=== PATIENT | male | born 1985 | race Caucasian/White ===

== ENCOUNTER 2023-12-25 19:44 | Emergency (ER) | payer OTHER, SELFPAY ==
[2023-12-25 19:47] VITALS: BP 114/85
--- NOTE | 2023-12-25 20:23 | ED.GENMED ---
History of Present Illness
<Amina Velasquez MD, Resident - Last Filed: 12/27/23 17:00>
General
Chief Complaint: Musculo-Skeletal Complaint
Time Seen by Provider: 12/25/23 20:00
History of Present Illness
History of Present Illness:
38 yo male presented today ER complaining from left knee injury and pain. He was playing hockey and his left knee crossed to lateral. He had the sensation of popping of his left patella. He denies hip, ankle pain and other pain. He denies any
chronic disease. On examination, his Braeden test was some painful on the left side. There was no erythematosus or infection sign on his knee. His left knee X ray showed no fracture. The patient was recommended to see an orthopedist physician.
If applicable-neuro sx onset
Date of onset of symptoms: 12/25/23
Past History
<Amina Velasquez MD, Resident - Last Filed: 12/27/23 17:00>
Past History
ED Past Medical History: Psychiatric
ED Past Surgical History: Orthopedic and Tonsilectomy
Social History
Tobacco: Non-smoker
Alcohol: Occasional
Drug: None
Personal:
Living: with family
Employment: Employed
Phy Exam
<Amina Velasquez MD, Resident - Last Filed: 12/27/23 17:00>
Physical Exam
Physical Exam:
On the left knee: anterior drawer test was negative, posterior drawer test was negative.
Bilateral hip and ankle ROM were full and not painful.
General Physical Exam
General Presentation: well appearing
General age: appears stated age
General Skin: warm
General Habitus: normal
General Mental: alert
General Hydration: appears well hydrated
Musculoskeletal Exam
Musculoskeletal Exam: full ROM
Comment
comment:
musculoskeletal injury, meniscopathy?
Course
<Amina Velasquez MD, Resident - Last Filed: 12/27/23 17:00>
Orders/Labs/Results
Orders:
Orders
12/25/23 19:50
Knee, Left 4 or More Views [CR Knee - Left 4 Or More View*] Urgent
Comment:
Reason For Exam: Left knee injury today while playing roller hockey
12/25/23 20:40
Crutches-Treatment ONCE
Knee Immobilizer Left-Treatmen ONCE
Vital Signs
Initial and Last Documented VS:
Initial Vital Signs
Temp Pulse Resp BP Pulse Ox
98.9 F 65 18 114/85 98
12/25/23 19:47 12/25/23 19:47 12/25/23 19:47 12/25/23 19:47 12/25/23 19:47
Last Documented Vital Signs
Temp Pulse Resp BP Pulse Ox
98.9 F 65 18 114/85 98
12/25/23 19:47 12/25/23 19:47 12/25/23 19:47 12/25/23 19:47 12/25/23 19:47
<Adis Perez, DO - Last Filed: 12/25/23 20:38>
Orders/Labs/Results
Orders:
Orders
12/25/23 19:50
Knee, Left 4 or More Views [CR Knee - Left 4 Or More View*] Urgent
Comment:
Reason For Exam: Left knee injury today while playing roller hockey
12/25/23 20:40
Crutches-Treatment ONCE
Knee Immobilizer Left-Treatmen ONCE
Vital Signs
Initial and Last Documented VS:
Initial Vital Signs
Temp Pulse Resp BP Pulse Ox
98.9 F 65 18 114/85 98
12/25/23 19:47 12/25/23 19:47 12/25/23 19:47 12/25/23 19:47 12/25/23 19:47
Last Documented Vital Signs
Temp Pulse Resp BP Pulse Ox
98.9 F 65 18 114/85 98
12/25/23 19:47 12/25/23 19:47 12/25/23 19:47 12/25/23 19:47 12/25/23 19:47
<Amina Velasquez MD, Resident - Last Filed: 12/27/23 17:00>
*Critical Care Note
Total Time (30-74mins, 75-104mins- exclusive of procedures): Not Applicable
ED Attending Note
<Amina Velasquez MD, Resident - Last Filed: 12/27/23 17:00>
-
Portions of this chart may have been created with voice recognition software.� Occasional wrong word or��sound alike� substitutions may have occurred due to the inherent limitations of voice recognition software.
<Adis Perez, - Last Filed: 12/25/23 20:38>
ED Attending Note
Patient seen and examined by attending physician: Yes
I performed the substantive portion of visit, reviewed & personally made and approve the management plan that is documented in note by myself or AVNI.: Yes
I performed a history and physical exam of patient and discussed management with resident, I reviewed resident's note and agree with documented findings and plan of care.: Yes
ED Attending Note:
The patient had a hockey injury and landed awkwardly primarily injuring his left knee. Plain film imaging unremarkable. Suspect medial meniscus versus ACL/MCL injury. Will place a new immobilizer. He declined analgesia here. Recommended NSAIDs.
Will also give crutches. He is to follow-up with orthopedics.
Discharge Plan
Departure
Patient Disposition: Home (Routine Discharge)
Date of Disposition: 12/25/23
Time of Disposition: 20:39
Patient with high blood pressure during this ER visit?: Yes
Discharge Problem:
Internal derangement of left knee
Instructions: Internal Derangement of the Knee (DC)
Prescriptions:
No Action
loratadine 10 mg Tablet
10 mg PO DAILY
escitalopram oxalate 10 mg tablet
10 mg PO DAILY
Referrals:
Donald Mora MD [Active] - Follow up in 2-3 days
[facility]Marta St[facility] [Family Provider] -
Activity Restrictions/Additional Instructions:
Please follow-up with Dr. Mora. I recommend 3-4 [id number] ibuprofen (Motrin) every 8 hours with food for a few days. Return here if worse.
Interventions
Interventions:
*Risk Screen - Suicide Last Done: 12/25/23 21:26
*General Assessment Last Done: 12/25/23 21:26
*Neglect/Abuse Screening Last Done: 12/25/23 21:26
ED- Fall Risk Assessment Last Done: 12/25/23 21:26
*ED COVID-19 Vaccine History Last Done: 12/25/23 21:26
*Nursing Disposition Last Done: 12/25/23 21:26
ED-Musculoskeletal Assessment Last Done: 12/25/23 21:26
Discharge Date and Time
Discharge Date/Time: 12/25/23 21:27
Print Language: LIBERIAN
== END 2023-12-25 21:27 | disposition home or self-care (01) ==
LOC: EMR 19:44
PROVIDERS: EMERGENCY PHYSICIAN Emergency Medicine; FAMILY PHYSICIAN Family Medicine
DX: M23.92 Unspecified internal derangement of left knee (principal); S89.92XA Unspecified injury of left lower leg, initial encounter; X50.1XXA Overexertion from prolonged static or awkward postures, initial encounter; Y93.89 Activity, other specified; R03.0 Elevated blood-pressure reading, without diagnosis of hypertension
CPT/HCPCS: 99283; 73564

== ENCOUNTER 2024-08-15 10:34 | Emergency (ER) | payer OTHER, SELFPAY ==
[2024-08-15 10:40] VITALS: BP 141/85
--- NOTE | 2024-08-15 12:29 | ED.SKININJ ---
HPI-Injury
General
Chief Complaint: Skin Surface Trauma
Source: patient
Time Seen by Provider: 08/15/24 11:54
History of Present Illness-Injury
Initial Injury comments:
39 year old male with laceration to right ring finger today. He cut his finger on a sharp metal box. Last tetanus unknown. He denies numbness or tingling or loss of function. No other complaints
Past History
Past History
ED Past Medical History: Psychiatric
ED Past Surgical History: Orthopedic and Tonsilectomy
Social History
Tobacco: Non-smoker
Alcohol: Occasional
Drug: None
Personal:
Living: with family
Employment: Employed
Phy Exam
Physical Exam
Physical Exam:
General: Well-appearing male no acute distress.
Skin: 1.5 cm laceration ulnar aspect right ring finger at the level of the PIP joint there is no tendon vascular or nerve involvement as he has good sensation blood flow and function to the right ring finger
Musculoskeletal exam function and motion of the right ring finger
Course
Vital Signs
Initial and Last Documented VS:
Initial Vital Signs
Temp Pulse Resp BP Pulse Ox
98.3 F 66 16 141/85 98
08/15/24 10:40 08/15/24 10:40 08/15/24 10:40 08/15/24 10:40 08/15/24 10:40
Last Documented Vital Signs
Temp Pulse Resp BP Pulse Ox
98.3 F 66 16 141/85 98
08/15/24 10:40 08/15/24 10:40 08/15/24 10:40 08/15/24 10:40 08/15/24 10:40
MDM/Problems Addressed
Differential Diagnosis Includes:
Laceration right ring finger. No tendon involvement.
The wound was copiously irrigated with saline anesthetized with 1% plain lidocaine. The wound was then closed with 5-0 Prolene sutures in a simple and erupted fashion. A total of 4 sutures were required to provide wound edge approximation and
hemostasis. Tetanus vaccine updated. Wound care instructions were given stable for discharge
*Critical Care Note
Total Time (30-74mins, 75-104mins- exclusive of procedures): Not Applicable
ED Attending Note
-
Portions of this chart may have been created with voice recognition software.� Occasional wrong word or��sound alike� substitutions may have occurred due to the inherent limitations of voice recognition software.
Discharge Plan
Departure
Patient Disposition: Home (Routine Discharge)
Date of Disposition: 08/15/24
Time of Disposition: 12:32
Patient with high blood pressure during this ER visit?: No
Discharge Problem:
Laceration
Instructions: Laceration Repair With Stitches (DC)
Prescriptions:
No Action
loratadine 10 mg Tablet
10 mg PO DAILY
escitalopram oxalate 10 mg tablet
10 mg PO DAILY
Referrals:
Tenthoff,Marta Stallworth MD [Family Provider] -
Activity Restrictions/Additional Instructions:
Keep clean. Have sutures removed in 10 to 12 days. Return if needed otherwise
Interventions
Interventions:
*Risk Screen - Suicide Last Done: 08/15/24 10:40
*Neglect/Abuse Screening Last Done: 08/15/24 10:40
ED-Skin Assessment Last Done: 08/15/24 11:59
Discharge Date and Time
Print Language: PUERTO RICAN
[2024-08-15] MEDS: ADACEL 0.5 ML IM (12:34)
== END 2024-08-15 12:48 | disposition home or self-care (01) ==
LOC: EMR 10:34
PROVIDERS: EMERGENCY PHYSICIAN Emergency Medicine; FAMILY PHYSICIAN Family Medicine
DX: S61.214A Laceration without foreign body of right ring finger without damage to nail, initial encounter (principal); W26.8XXA Contact with other sharp object(s), not elsewhere classified, initial encounter; Z23 Encounter for immunization
CPT/HCPCS: 12001; 90471; 99282; 90715